=== PATIENT | female | born 1975 | race Caucasian/White ===

== ENCOUNTER 2017-05-31 14:32 | Inpatient (IN) | payer MEDICAID ==
[2017-05-31] MEDS ORDERED: Oxycodone/Acetaminophen 5/325 mg Tab PO STA (14:50)
--- NOTE | 2017-05-31 14:56 | C.PDOC ---
History Of Present Illness 42 year old female presents to the ED c/o severe body aches, chills, nasal congestion, headache, coughing, fever for 4 days. Patient reports taking Advil around the clock with no improvement. Patient states today she still has a fever , has a severe headache pt is currently moaning and looks uncomfortable. Patient denies SOB, sore throat, neck pain, CP, nausea, vomit, diarrhea. Time Seen by Provider: 05/31/17 14:42 Chief Complaint (Nursing): Fever History Per: Patient History/Exam Limitations: no limitations Onset/Duration Of Symptoms: Days Current Symptoms Are (Timing): Still Present Location Of Pain: Headache Sick Contacts (Context): None Associated Symptoms: Fever, Chills, Cough, Nasal Congestion. denies: Nausea, Vomiting, Diarrhea Severity: Mild Recent travel outside of the [place]: No Additional History Per: Patient Past Medical History Reviewed: Historical Data, Nursing Documentation, Vital Signs Vital Signs: Last Vital Signs Temp 99.7 F H 05/31/17 19:36 Pulse 91 H 05/31/17 20:14 Resp 18 05/31/17 20:14 BP 93/50 L 05/31/17 20:14 Pulse Ox 100 05/31/17 19:36 - Medical History PMH: No Chronic Diseases Surgical History: No Surg Hx Family History: States: Unknown Family Hx - Social History Hx Alcohol Use: No Hx Substance Use: No - Immunization History Hx Tetanus Toxoid Vaccination: No Hx Influenza Vaccination: No Hx Pneumococcal Vaccination: No Review Of Systems Constitutional: Positive for: Fever, Chills, Other (Body aches) ENT: Positive for: Nose Congestion. Negative for: Throat Pain Cardiovascular: Negative for: Chest Pain, Palpitations Respiratory: Positive for: Cough. Negative for: Shortness of Breath Gastrointestinal: Negative for: Nausea, Vomiting, Abdominal Pain Musculoskeletal: Negative for: Neck Pain Skin: Negative for: Rash Neurological: Negative for: Weakness, Numbness Physical Exam - Physical Exam Appears: Non-toxic, Other (Uncomfortable ) Skin: Normal Color, Warm, Dry Head: Atraumatic, Normacephalic Eye(s): bilateral: Normal Inspection Ear(s): Bilateral: Normal Nose: No Discharge Oral Mucosa: Moist Throat: Normal, No Erythema, No Exudate Neck: Normal ROM, Supple, No Other (Neck stiffness) Lymphatic: No Adenopathy Chest: Symmetrical Cardiovascular: Rhythm Regular, No Murmur Respiratory: Normal Breath Sounds, No Rales, No Rhonchi, No Wheezing Gastrointestinal/Abdominal: Soft, No Tenderness, No Distention, No Guarding, No Rebound Back: No CVA Tenderness Extremity: Normal ROM, No Pedal Edema, No Calf Tenderness, No Swelling Neurological/Psych: Oriented x3, Normal Speech, Normal Cognition Gait: Steady ED Course And Treatment - Laboratory Results Result Diagrams: 05/31/17 15:29 05/31/17 15:29 Lab Interpretation: Abnormal (WBC 14.3 with left shift, Urine WBC 17 with 2+ leukocyte esterase and moderate bacteria.) Urine POC: Negative O2 Sat by Pulse Oximetry: 100 (On RA) Pulse Ox Interpretation: Normal - Radiology CXR: Interpreted by Me, Viewed By Me, Read By Radiologist CXR Interpretation: Yes: Other (No focal consolidation, significant pleural effusion, or definite pneumothorax identified.) Progress Note: Patient treated with 4 liters of normal saline in ED with persistently low BP but resolution of tachycardia. She was given Rocephin 1gm IVPB. Reevaluation Time: 20:27 Reassessment Condition: Improved (BP now 93/50) - Physician Consult Information Physician Contacted: Addison Garces Outcome Of Conversation: Patient to be admitted for continuation of IV antibiotics. Medical Decision Making Medical Decision Making: Plan: * Percocet 1 tab PO given Pt is hyperventilating, still very warm. Pt tried to stand up and fainted. Disposition Counseled Patient/Family Regarding: Studies Performed, Diagnosis - Disposition Disposition: HOSPITALIZED Disposition Time: 20:29 Condition: IMPROVED - POA Present On Arrival: None - Clinical Impression Clinical Impression: Fever, Urinary tract infection - Scribe Statement The provider has reviewed the documentation as recorded by the Scribe Alverto Plascencia All medical record entries made by the Scribe were at my direction and personally dictated by me. I have reviewed the chart and agree that the record accurately reflects my personal performance of the history, physical exam, medical decision making, and the department course for this patient. I have also personally directed, reviewed, and agree with the discharge instructions and disposition.
[2017-05-31] MEDS ORDERED: Oxycodone/Acetaminophen 5/325 mg Tab ONE (15:23)
[2017-05-31 15:33] LABS: BASO % 0.2 % (0.0-2.0); EOS % 0.1 % (0.0-4.0); HEMATOCRIT 35.7 % (34.0-47.0); LYMPH # 1.3 K/uL (1.0-4.3); LYMPH % 9.2 % (20.0-40.0); MEAN CELL VOLUME 91.1 fL (81.0-99.0); MEAN CORPUSCULAR HEMOGLOBIN 30.6 pg (27.0-31.0); MEAN CORPUSCULAR HGB CONC 33.6 g/dL (33.0-37.0); MEAN PLATELET VOLUME 8.1 fL (7.2-11.7); MONO # 1.1 K/uL (0.0-0.8); MONO % 7.5 % (0.0-10.0); PLATELET COUNT 196 K/uL (130-400); RED CELL DISTRIBUTION WIDTH 13.2 % (11.5-14.5)
[2017-05-31 15:41] LABS: WHITE BLOOD COUNT 14.3 K/uL (4.8-10.8)
[2017-05-31 15:46] LABS: ALB/GLOB RATIO 1.3 (1.0-2.1); BILIRUBIN,TOTAL 0.8 mg/dL (0.2-1.3); GFR AFRICAN-AMERICAN > 60; GLUCOSE,RANDOM 107 mg/dL (65-105); TOTAL PROTEIN 7.1 g/dL (6.3-8.3)
[2017-05-31 15:51] LABS: ALKALINE PHOSPHATASE 121 U/L (38-126); ALT/SGPT 197 U/L (9-52); AST/SGOT 245 U/L (14-36); BLOOD UREA NITROGEN 9 mg/dL (7-17); CARBON DIOXIDE 26 mmol/L (22-30); CHLORIDE 100 mmol/L (98-107); POTASSIUM 4.1 mmol/L (3.6-5.2); SODIUM 138 mmol/L (132-148)
[2017-05-31 15:58] LABS: NEUTROPHIL 81 % (50-75); TOTAL CELLS COUNTED 100
--- NOTE | 2017-05-31 16:03 | RAD ---
HISTORY: SOB COMPARISON: None available. TECHNIQUE: Chest, one view. FINDINGS: Examination limited by habitus. LUNGS: No focal consolidation. Please note that chest x-ray has limited sensitivity for the detection of pulmonary masses. PLEURA: No significant pleural effusion identified. No definite pneumothorax . CARDIOVASCULAR: The cardiomediastinal silhouette appears within normal limits of size. OSSEOUS STRUCTURES: No acute osseous abnormality identified. VISUALIZED UPPER ABDOMEN: Unremarkable. OTHER FINDINGS: None. IMPRESSION: No focal consolidation, significant pleural effusion, or definite pneumothorax identified.
[2017-05-31] MEDS ORDERED: Sodium Chloride 0.9% 1,000 ML ONE (16:05)
[2017-05-31] MEDS ORDERED: Sodium Chloride 0.9% 1,000 ML IV ONE ×3 (16:07→19:24)
[2017-05-31 17:19] LABS: RBC URINE 10 /hpf (0-3); TRANSITIONAL EPITHIAL < 1 /hpf (0-3); URINE BACTERIA MOD (<OCC); URINE BILIRUBIN NEGATIVE (NEGATIVE); URINE BLOOD 2+ (NEGATIVE); URINE COLOR Yellow (YELLOW); URINE GLUCOSE (UA) NORMAL (Normal); URINE KETONE 1+ mg/dL (NEGATIVE); URINE PROTEIN NEGATIVE (NEGATIVE); WBC URINE 17 /hpf (0-5)
[2017-05-31 17:20] LABS: URINE LEUKOCYTE ESTERASE 2+ Leu/uL (Negative)
[2017-05-31] MEDS ORDERED: cefTRIAXone IV 1 gm in Dextros 50 ML IVPB ONE (17:31)
[2017-05-31 19:33] LABS: VENOUS BLOOD GAS BASE EXCESS -4.7 mmol/L (0.0-2.0); VENOUS BLOOD GAS PCO2 37 mmHg (40-60); VENOUS BLOOD PH 7.35 (7.32-7.43)
[2017-05-31] MEDS ORDERED: Sodium Chloride 0.9% 1,000 ML IV SCH ×2 (20:15→20:30)
[2017-05-31 22:59] VITALS: RESP 20
--- NOTE | 2017-06-01 00:16 | CP.PCM.HP ---
<DominickOralia - Last Filed: 06/01/17 03:14> History of Present Illness - History of Present Illness History of Present Illness: CC: "flu like symptoms" HPI: 42 y/o Georgian speaking female with no significant PMH presents to the ED complaining of "cold/flu-like symptoms". Patient says she started having a generalized headache, fever, chills, and body aches 4 days ago. Patient says she has tried Advil, Tylenol, and Motrin with minimal relief. Patient says she has been taking 6 Advil every 8 hours and 2 acetaminophen last night. She says her son was recently sick with similar symptoms. Patient admits to dry cough, midsternal chest pressure, SOB at rest, dizziness upon standing, palpitations, nausea, vomiting x2 yesterday, and constipation. She denies changes in vision or hearing, sore throat, abdominal pain, diarrhea, hematemesis, dysuria, hematuria, pain and swelling in legs, and recent travel. FDLNMP: 05/16/17. PCP: Sulma Douglas PMH: denies Meds: denies PSH: x3 [place]: denies FH: unspecified aneurysm (mother) SH: denies tobacco, alcohol, and drug use Present on Admission - Present on Admission Any Indicators Present on Admission: No Review of Systems - Review of Systems All systems: reviewed and no additional remarkable complaints except (as per HPI ) Past Patient History - Past Social History Smoking Status: Never Smoked - PSYCHIATRIC Hx Substance Use: No - SURGICAL HISTORY Hx Section: Yes (x3) - ANESTHESIA Hx Anesthesia: Yes Hx Anesthesia Reactions: No Meds Allergies/Adverse Reactions: Allergies Allergy/AdvReac Type Severity Reaction Status Date / Time No Known Allergies Allergy Verified 05/31/17 14:41 Physical Exam - Constitutional Appears: Non-toxic, No Acute Distress, Other (fatigued ) - Head Exam Head Exam: ATRAUMATIC, NORMAL INSPECTION, NORMOCEPHALIC - Eye Exam Eye Exam: EOMI, Normal appearance - ENT Exam ENT Exam: Mucous Membranes Moist, Normal Oropharynx - Neck Exam Neck exam: Negative for: Lymphadenopathy - Respiratory Exam Respiratory Exam: Clear to Auscultation Bilateral, NORMAL BREATHING PATTERN. absent: Accessory Muscle Use, Rales, Rhonchi, Wheezes, Respiratory Distress - Cardiovascular Exam Cardiovascular Exam: Tachycardia, RRR, +S1, +S2 - GI/Abdominal Exam GI & Abdominal Exam: Normal Bowel Sounds, Soft. absent: Distended, Firm, Guarding, Tenderness - Extremities Exam Extremities exam: Positive for: normal capillary refill, normal inspection, pedal pulses present. Negative for: calf tenderness, pedal edema - Back Exam Back exam: absent: CVA tenderness (L), CVA tenderness (R) - Neurological Exam Neurological exam: Alert, Oriented x3 Additional comments: negative Brudzinski and Kernig sign - Psychiatric Exam Psychiatric exam: Normal Affect, Normal Mood - Skin Skin Exam: Dry, Intact, Normal Color, Warm Results - Vital Signs Recent Vital Signs: Last Vital Signs Temp 98.7 F 05/31/17 22:58 Pulse 83 05/31/17 22:58 Resp 20 05/31/17 22:58 BP 91/57 L 05/31/17 22:58 Pulse Ox 96 05/31/17 22:58 - Labs Result Diagrams: 05/31/17 15:29 05/31/17 15:29 Labs: Laboratory Results - last 24 hr 05/31/17 05/31/17 05/31/17 15:29 15:29 15:32 WBC 14.3 H D RBC 3.92 Hgb 12.0 Hct 35.7 MCV 91.1 MCH 30.6 MCHC 33.6 RDW 13.2 Plt Count 196 MPV 8.1 Neut % (Auto) 83.0 H Lymph % (Auto) 9.2 L [place] % (Auto) 7.5 Eos % (Auto) 0.1 Baso % (Auto) 0.2 Neut # 11.8 H Lymph # 1.3 [place] # 1.1 H Eos # 0.0 Baso # 0.0 Neutrophils % (Manual) 81 H Lymphocytes % (Manual) 6 L Monocytes % (Manual) 13 H Platelet Estimate Normal RBC Morphology Normal pO2 VBG pH VBG pCO2 VBG HCO3 VBG Total CO2 VBG O2 Sat (Calc) VBG Base Excess VBG Potassium Glucose Lactate Sodium 138 Potassium 4.1 Chloride 100 Carbon Dioxide 26 Anion Gap 16 BUN 9 Creatinine 0.7 Est GFR ( Amer) > 60 Est GFR (Non-Af Amer) > 60 Random Glucose 107 H Calcium 8.0 L Total Bilirubin 0.8 AST 245 H ALT 197 H D Alkaline Phosphatase 121 Total Protein 7.1 Albumin 4.1 Globulin 3.0 Albumin/Globulin Ratio 1.3 Venous Blood Potassium Urine Color Urine Clarity Urine pH Ur Specific [place] Urine Protein Urine Glucose (UA) Urine Ketones Urine Blood Urine Nitrate Urine Bilirubin Urine Urobilinogen Ur Leukocyte Esterase Urine WBC (Auto) Urine RBC (Auto) Ur Squamous Epith Cells Ur Transition Epith Cell Urine Bacteria Urine HCG, Qual Influenza Typ A,B (EIA) Negative for flu a/b 05/31/17 05/31/17 17:12 19:30 WBC RBC Hgb Hct MCV MCH MCHC RDW Plt Count MPV Neut % (Auto) Lymph % (Auto) [place] % (Auto) Eos % (Auto) Baso % (Auto) Neut # Lymph # [place] # Eos # Baso # Neutrophils % (Manual) Lymphocytes % (Manual) Monocytes % (Manual) Platelet Estimate RBC Morphology pO2 44 VBG pH 7.35 VBG pCO2 37 L VBG HCO3 20.7 VBG Total CO2 21.5 L VBG O2 Sat (Calc) 84.2 H VBG Base Excess -4.7 L VBG Potassium 3.1 L Glucose 98 Lactate 0.5 L Sodium 139.0 Potassium Chloride 114.0 H Carbon Dioxide Anion Gap BUN Creatinine Est GFR ( Amer) Est GFR (Non-Af Amer) Random Glucose Calcium Total Bilirubin AST ALT Alkaline Phosphatase Total Protein Albumin Globulin Albumin/Globulin Ratio Venous Blood Potassium 3.1 L Urine Color Yellow Urine Clarity Clear Urine pH 8.0 Ur Specific [place] 1.006 Urine Protein Negative Urine Glucose (UA) Normal Urine Ketones 1+ H Urine Blood 2+ H Urine Nitrate Negative Urine Bilirubin Negative Urine Urobilinogen 2.0 H Ur Leukocyte Esterase 2+ H Urine WBC (Auto) 17 H Urine RBC (Auto) 10 H Ur Squamous Epith Cells 1 Ur Transition Epith Cell < 1 Urine Bacteria Mod H Urine HCG, Qual Negative Influenza Typ A,B (EIA) Assessment & Plan (1) Urinary tract infection Assessment and Plan: * fever and leukocytosis (14.3) * UA: Ketones 1+, Blood 2+, Urobilinogen 2, Leukocyte esterase 2+, WBC 17, RBC 10, Bacteria moderate, HCG negative * f/u repeat UA * Rocephin 1g daily * f/u urine culture * f/u procal * Tylenol prn fever * Toradol x1 dose given Status: Acute (2) Cough Assessment and Plan: * CXR: no acute cardiopulmonary disease * Flu A/B negative Status: Acute (3) Hypotension Assessment and Plan: * given 3L bolus in the ED * NS@100 * lactate: 0.5 * f/u blood culture Status: Acute (4) Transaminitis Assessment and Plan: * AST/ALT on admission: 245/197 * f/u hepatitis panel * f/u hepatic US Status: Acute (5) Prophylactic measure Assessment and Plan: * heparin * protonix * zofran prn nausea * tylenol prn fever Status: Acute <PhillipjoshJose P - Last Filed: 06/01/17 06:30> Results - Vital Signs Recent Vital Signs: Last Vital Signs Temp 100 F H 06/01/17 05:58 Pulse 86 06/01/17 03:00 Resp 20 06/01/17 03:00 BP 95/62 L 06/01/17 03:00 Pulse Ox 95 06/01/17 03:00 - Labs Result Diagrams: 05/31/17 15:29 05/31/17 15:29 Labs: Laboratory Results - last 24 hr 05/31/17 05/31/17 05/31/17 15:29 15:29 15:32 WBC 14.3 H D RBC 3.92 Hgb 12.0 Hct 35.7 MCV 91.1 MCH 30.6 MCHC 33.6 RDW 13.2 Plt Count 196 MPV 8.1 Neut % (Auto) 83.0 H Lymph % (Auto) 9.2 L [place] % (Auto) 7.5 Eos % (Auto) 0.1 Baso % (Auto) 0.2 Neut # 11.8 H Lymph # 1.3 [place] # 1.1 H Eos # 0.0 Baso # 0.0 Neutrophils % (Manual) 81 H Lymphocytes % (Manual) 6 L Monocytes % (Manual) 13 H Platelet Estimate Normal RBC Morphology Normal pO2 VBG pH VBG pCO2 VBG HCO3 VBG Total CO2 VBG O2 Sat (Calc) VBG Base Excess VBG Potassium Glucose Lactate Sodium 138 Potassium 4.1 Chloride 100 Carbon Dioxide 26 Anion Gap 16 BUN 9 Creatinine 0.7 Est GFR ( Amer) > 60 Est GFR (Non-Af Amer) > 60 Random Glucose 107 H Calcium 8.0 L Total Bilirubin 0.8 AST 245 H ALT 197 H D Alkaline Phosphatase 121 Total Protein 7.1 Albumin 4.1 Globulin 3.0 Albumin/Globulin Ratio 1.3 Venous Blood Potassium Urine Color Urine Clarity Urine pH Ur Specific [place] Urine Protein Urine Glucose (UA) Urine Ketones Urine Blood Urine Nitrate Urine Bilirubin Urine Urobilinogen Ur Leukocyte Esterase Urine WBC (Auto) Urine RBC (Auto) Ur Squamous Epith Cells Ur Transition Epith Cell Urine Bacteria Urine HCG, Qual Influenza Typ A,B (EIA) Negative for flu a/b 05/31/17 05/31/17 06/01/17 17:12 19:30 01:43 WBC RBC Hgb Hct MCV MCH MCHC RDW Plt Count MPV Neut % (Auto) Lymph % (Auto) [place] % (Auto) Eos % (Auto) Baso % (Auto) Neut # Lymph # [place] # Eos # Baso # Neutrophils % (Manual) Lymphocytes % (Manual) Monocytes % (Manual) Platelet Estimate RBC Morphology pO2 44 VBG pH 7.35 VBG pCO2 37 L VBG HCO3 20.7 VBG Total CO2 21.5 L VBG O2 Sat (Calc) 84.2 H VBG Base Excess -4.7 L VBG Potassium 3.1 L Glucose 98 Lactate 0.5 L Sodium 139.0 Potassium Chloride 114.0 H Carbon Dioxide Anion Gap BUN Creatinine Est GFR ( Amer) Est GFR (Non-Af Amer) Random Glucose Calcium Total Bilirubin AST ALT Alkaline Phosphatase Total Protein Albumin Globulin Albumin/Globulin Ratio Venous Blood Potassium 3.1 L Urine Color Yellow Straw Urine Clarity Clear Clear Urine pH 8.0 6.0 Ur Specific [place] 1.006 1.008 Urine Protein Negative Negative Urine Glucose (UA) Normal Normal Urine Ketones 1+ H 1+ H Urine Blood 2+ H 1+ H Urine Nitrate Negative Negative Urine Bilirubin Negative Negative Urine Urobilinogen 2.0 H Normal Ur Leukocyte Esterase 2+ H 2+ H Urine WBC (Auto) 17 H 121 H Urine RBC (Auto) 10 H 3 Ur Squamous Epith Cells 1 9 H Ur Transition Epith Cell < 1 Urine Bacteria Mod H Rare Urine HCG, Qual Negative Influenza Typ A,B (EIA) Attending/Attestation - Attestation I have personally seen and examined this patient.: Yes I have fully participated in the care of the patient.: Yes I have reviewed all pertinent clinical information: Yes Notes (Text): Assessment Sepsis with fever leukocytosis, headach, bodyache, h/o son having similar symptoms, infection looking picture of urine without back, suprapubic pain/ tenderness, elevated transaminases DD of UTI, viral syndrome, viral hepatitis. Plan Empiric abx, cultures, hepatitis panel, hiv testing, gi/dvt prophylaxis. See orders for detail.
[2017-06-01] MEDS: Sodium Chloride 0.9% 1,000 ML IV SCH ×4 (00:40→21:29)
[2017-06-01 01:52] LABS: RBC URINE 3 /hpf (0-3); URINE BACTERIA RARE (<OCC); URINE BILIRUBIN NEGATIVE (NEGATIVE); URINE BLOOD 1+ (NEGATIVE); URINE COLOR Straw (YELLOW); URINE GLUCOSE (UA) NORMAL (Normal); URINE KETONE 1+ mg/dL (NEGATIVE); URINE LEUKOCYTE ESTERASE 2+ Leu/uL (Negative); URINE PROTEIN NEGATIVE (NEGATIVE); URINE UROBILINOGEN NORMAL mg/dL (0.2-1.0); WBC URINE 121 /hpf (0-5)
[2017-06-01 07:16] LABS: EOS % 0.1 % (0.0-4.0); LYMPH # 1.1 K/uL (1.0-4.3); MONO # 0.8 K/uL (0.0-0.8)
[2017-06-01 07:22] LABS: HEMATOCRIT 29.2 % (34.0-47.0); LYMPH % 10.1 % (20.0-40.0); MEAN CELL VOLUME 91.3 fL (81.0-99.0); MEAN CORPUSCULAR HEMOGLOBIN 31.3 pg (27.0-31.0); MEAN CORPUSCULAR HGB CONC 34.3 g/dL (33.0-37.0); MEAN PLATELET VOLUME 8.4 fL (7.2-11.7); MONO % 7.1 % (0.0-10.0); RED CELL DISTRIBUTION WIDTH 13.2 % (11.5-14.5); WHITE BLOOD COUNT 10.8 K/uL (4.8-10.8)
[2017-06-01 07:53] LABS: ALB/GLOB RATIO 1.2 (1.0-2.1); ALKALINE PHOSPHATASE 97 U/L (38-126); ALT/SGPT 184 U/L (9-52); AST/SGOT 121 U/L (14-36); BILIRUBIN,TOTAL 0.5 mg/dL (0.2-1.3); BLOOD UREA NITROGEN 5 mg/dL (7-17); CALCIUM 6.4 mg/dl (8.6-10.4); CARBON DIOXIDE 20 mmol/L (22-30); CHLORIDE 108 mmol/L (98-107); GFR AFRICAN-AMERICAN > 60; GLUCOSE,RANDOM 89 mg/dL (65-105); POTASSIUM 3.4 mmol/L (3.6-5.2); SODIUM 137 mmol/L (132-148); TOTAL PROTEIN 5.3 g/dL (6.3-8.3)
--- NOTE | 2017-06-01 09:22 | US ---
HISTORY: transaminitis COMPARISON: None. TECHNIQUE: Sonographic evaluation of the right upper quadrant of the abdomen. FINDINGS: LIVER: Measures 17.00 cm in length. Normal echogenicity of the liver parenchyma. No mass. No intrahepatic bile duct dilatation. GALLBLADDER: No cholelithiasis. Thickened wall. Trace pericholecystic fluid. Wall measures 5 mm thickness. Negative sonographic Pichardo sign. COMMON BILE DUCT: Measures mm. No stones. No dilatation. PANCREAS: Unremarkable as visualized. No mass. No ductal dilatation. RIGHT KIDNEY: Measures 11.0 cm in length. Normal echogenicity. No calculus, mass, or hydronephrosis. AORTA: No aneurysmal dilatation. IVC: Unremarkable. OTHER FINDINGS: None . IMPRESSION: Thickened gallbladder wall. Trace pericholecystic fluid. No cholelithiasis and negative sonographic Pichardo sign. Nonspecific finding. The remainder the examination is unremarkable.
[2017-06-01] MEDS: Pantoprazole 40 mg EC Tab PO SCH (11:34)
[2017-06-01] MEDS ORDERED: POLYETHYLENE GLYCOL 3350 17 GM/Dose PACKET PO ONE (12:00)
--- NOTE | 2017-06-01 16:22 | CP.PCM.PN ---
<Summer Camara - Last Filed: 06/01/17 16:17> Subjective - Date & Time of Evaluation Date of Evaluation: 06/01/17 Time of Evaluation: 10:00 - Subjective Subjective: Medicine Note for Hospitalist, Dr. Diallo's Service Patient was seen and examined at bedside. Patient reports she was feverish this morning with some chills. Denied headache, chest pain, SOB, abdominal pain, n/v/ d/c, or urinary symptoms. Objective - Vital Signs/Intake and Output Vital Signs (last 24 hours): Temp Pulse Resp BP Pulse Ox 99.0 F 97 H 20 93/57 L 96 06/01/17 15:03 06/01/17 15:03 06/01/17 15:03 06/01/17 15:03 06/01/17 15:03 Intake and Output: 06/01/17 06/01/17 06:59 18:59 Intake Total 1300 Output Total 400 Balance 900 - Medications Medications: Current Medications Acetaminophen (Tylenol 325mg Tab) 650 mg PO Q6 PRN PRN Reason: Fever >100.4 F Last Admin: 06/01/17 12:47 Dose: 650 mg Docusate Sodium (Colace) 100 mg PO BID [facility] Heparin Sodium (Porcine) (Heparin) 5,000 units SC Q12 [facility] Last Admin: 06/01/17 11:31 Dose: 5,000 units Sodium Chloride (Sodium Chloride 0.9%) 1,000 mls @ 100 mls/hr IV .Q10H [facility] Last Admin: 06/01/17 12:48 Dose: Not Given Ceftriaxone Sodium 1 gm/ (Sodium Chloride) 100 mls @ 100 mls/hr IVPB DAILY [facility] Last Admin: 06/01/17 11:37 Dose: 100 mls/hr Ondansetron HCl (Zofran Inj) 4 mg IVP Q6 PRN PRN Reason: Nausea/Vomiting Last Admin: 06/01/17 00:53 Dose: 4 mg Pantoprazole Sodium (Protonix Ec Tab) 40 mg PO DAILY [facility] Last Admin: 06/01/17 11:34 Dose: 40 mg Pneumococcal Polyvalent Vaccine (Pneumovax 23 Vaccine) 0.5 ml IM .ONCE ONE Stop: 06/03/17 10:01 Potassium Chloride (K-Dur 20 Meq Er Tab) 40 meq PO ONCE ONE Stop: 06/02/17 11:01 - Labs Labs: 06/01/17 07:05 06/01/17 07:05 - Constitutional Appears: No Acute Distress - Head Exam Head Exam: NORMAL INSPECTION, NORMOCEPHALIC - Eye Exam Eye Exam: EOMI, Normal appearance, PERRL Pupil Exam: NORMAL ACCOMODATION - ENT Exam ENT Exam: Mucous Membranes Moist, Normal Exam - Neck Exam Neck Exam: Normal Inspection - Respiratory Exam Respiratory Exam: Clear to Ausculation Bilateral, NORMAL BREATHING PATTERN. absent: Decreased Breath Sounds - Cardiovascular Exam Cardiovascular Exam: REGULAR RHYTHM, RRR - GI/Abdominal Exam GI & Abdominal Exam: Soft, Normal Bowel Sounds. absent: Distended, Tenderness - Back Exam Back Exam: absent: CVA tenderness (L), CVA tenderness (R) - Neurological Exam Neurological Exam: Alert, Awake, Oriented x3 - Psychiatric Exam Psychiatric exam: Normal Affect, Normal Mood - Skin Skin Exam: Dry, Intact, Normal Color, Warm Assessment and Plan - Assessment and Plan (Free Text) Plan: (1) Urinary tract infection * Persistent fever, resolved leukocytosis, continued left shift, no lactate level * UA: Ketones 1+, Blood 2+, Urobilinogen 2, Leukocyte esterase 2+, WBC 17, RBC 10, Bacteria moderate, HCG negative * Rocephin 1g daily * Tylenol prn fever * f/u urine culture * f/u procal (2) Cough * CXR: no acute cardiopulmonary disease * Flu A/B negative (3) Hypotension * given 3L bolus in the ED * NS@100 * lactate: 0.5 * f/u blood culture (4) Transaminitis * Likely 2/2 to Tylenol use * AST/ALT on admission: 245/197 --> downtrending * Hepatitis panel - negative * Hepatic US - some pericholecystic fluid otherwise unremarkable US (5) Prophylactic measure * heparin * protonix * zofran prn nausea * tylenol prn fever DW Hoa Alvarez DO,PGY-[id number] <Eleanor Couch - Last Filed: 06/02/17 18:30> Objective - Vital Signs/Intake and Output Vital Signs (last 24 hours): Temp Pulse Resp BP Pulse Ox 99.8 F H 82 20 105/61 99 06/02/17 15:00 06/02/17 15:00 06/02/17 15:00 06/02/17 15:00 06/02/17 15:00 Intake and Output: 06/02/17 06/02/17 06:59 18:59 Intake Total 2430 1350 Balance 2430 1350 - Medications Medications: Current Medications Docusate Sodium (Colace) 100 mg PO BID [facility] Last Admin: 06/02/17 17:30 Dose: 100 mg Heparin Sodium (Porcine) (Heparin) 5,000 units SC Q12 [facility] Last Admin: 06/02/17 11:34 Dose: 5,000 units Ceftriaxone Sodium 1 gm/ (Sodium Chloride) 100 mls @ 100 mls/hr IVPB DAILY [facility] Last Admin: 06/02/17 11:35 Dose: 100 mls/hr Sodium Chloride (Sodium Chloride 0.9%) 1,000 mls @ 125 mls/hr IV .Q8H [facility] Last Admin: 06/02/17 08:22 Dose: 125 mls/hr Ibuprofen (Motrin Tab) 600 mg PO Q6H PRN PRN Reason: Fever >100.4 F Ondansetron HCl (Zofran Inj) 4 mg IVP Q6 PRN PRN Reason: Nausea/Vomiting Last Admin: 06/01/17 00:53 Dose: 4 mg Pantoprazole Sodium (Protonix Ec Tab) 40 mg PO DAILY [facility] Last Admin: 06/02/17 11:34 Dose: 40 mg Pneumococcal Polyvalent Vaccine (Pneumovax 23 Vaccine) 0.5 ml IM .ONCE ONE Stop: 06/03/17 10:01 Potassium Phos/Sodium Phos (Neutra-Phos) 1 pkt PO TID [facility] Stop: 06/03/17 10:01 Last Admin: 06/02/17 17:30 Dose: 1 pkt Promethazine HCl/Codeine (Phenergan/Codeine Oral Syrup) 5 ml PO Q4 PRN PRN Reason: Cough Last Admin: 06/02/17 16:09 Dose: 5 ml - Labs Labs: 06/02/17 06:24 06/02/17 06:24 Attending/Attestation - Attestation I have personally seen and examined this patient.: Yes I have fully participated in the care of the patient.: Yes I have reviewed all pertinent clinical information, including history, physical exam and plan: Yes Notes (Text): Seen and examined d/w the resident I agree with the documentation of the resident's assessment and the plan 06/02/17 18:28
[2017-06-01 17:46] LABS: LEGIONELLA AG URINE NEGATIVE (NEGATIVE)
[2017-06-02] MEDS: Sodium Chloride 0.9% 1,000 ML IV SCH ×3 (05:22→19:00)
[2017-06-02 06:33] LABS: BASO % 0.2 % (0.0-2.0); EOS % 0.1 % (0.0-4.0); HEMATOCRIT 28.7 % (34.0-47.0); LYMPH # 1.3 K/uL (1.0-4.3); LYMPH % 17.9 % (20.0-40.0); MEAN CELL VOLUME 90.4 fL (81.0-99.0); MEAN CORPUSCULAR HEMOGLOBIN 30.5 pg (27.0-31.0); MEAN CORPUSCULAR HGB CONC 33.7 g/dL (33.0-37.0); MEAN PLATELET VOLUME 8.2 fL (7.2-11.7); MONO # 0.7 K/uL (0.0-0.8); MONO % 9.6 % (0.0-10.0); WHITE BLOOD COUNT 7.1 K/uL (4.8-10.8)
[2017-06-02 06:56] LABS: ALB/GLOB RATIO 1.3 (1.0-2.1); ALKALINE PHOSPHATASE 126 U/L (38-126); ALT/SGPT 267 U/L (9-52); AST/SGOT 218 U/L (14-36); BILIRUBIN,TOTAL 0.4 mg/dL (0.2-1.3); CARBON DIOXIDE 25 mmol/L (22-30); CHLORIDE 109 mmol/L (98-107); GFR AFRICAN-AMERICAN > 60; GLUCOSE,RANDOM 96 mg/dL (65-105); MAGNESIUM 1.8 mg/dL (1.6-2.3); PHOSPHOROUS 1.2 mg/dL (2.5-4.5); POTASSIUM 3.1 mmol/L (3.6-5.2); SODIUM 140 mmol/L (132-148); TOTAL PROTEIN 5.3 g/dL (6.3-8.3)
[2017-06-02 07:20] LABS: BLOOD UREA NITROGEN 2 mg/dL (7-17)
[2017-06-02] MEDS ORDERED: Magnesium Sulfate 1 gm in D5W 1 GM/100 ML BAG IVPB SCH (08:00)
[2017-06-02] MEDS ORDERED: Potassium Chloride 20 mEq ER Tab PO ONE ×3 (10:00→11:15)
[2017-06-02] MEDS: Pantoprazole 40 mg EC Tab PO SCH (11:34)
[2017-06-02] MEDS: Potassium & Sodium Phosphate PO SCH ×3 (11:35→17:30)
[2017-06-02] MEDS ORDERED: Albuterol-Ipratrop 3 mg / 0.5 (3 ml) UD INH ONE (15:45)
--- NOTE | 2017-06-02 15:46 | CP.PCM.PN ---
<Summer Camara - Last Filed: 06/02/17 15:39> Subjective - Date & Time of Evaluation Date of Evaluation: 06/02/17 Time of Evaluation: 10:00 - Subjective Subjective: Medicine Note for Hospitalist, Dr. Diallo's Service Patient was seen and examined at bedside. Patient reports she was feverish last night, however today no fever or chills. Denied headache, chest pain, SOB, abdominal pain, n/v/d/c, or urinary symptoms. Objective - Vital Signs/Intake and Output Vital Signs (last 24 hours): Temp Pulse Resp BP Pulse Ox 98.6 F 80 20 92/57 L 94 L 06/02/17 07:55 06/02/17 07:55 06/02/17 07:55 06/02/17 07:55 06/02/17 07:55 Intake and Output: 06/02/17 06/02/17 06:59 18:59 Intake Total 2430 Balance 2430 - Medications Medications: Current Medications Docusate Sodium (Colace) 100 mg PO BID [facility] Last Admin: 06/02/17 11:34 Dose: 100 mg Heparin Sodium (Porcine) (Heparin) 5,000 units SC Q12 [facility] Last Admin: 06/02/17 11:34 Dose: 5,000 units Ceftriaxone Sodium 1 gm/ (Sodium Chloride) 100 mls @ 100 mls/hr IVPB DAILY [facility] Last Admin: 06/02/17 11:35 Dose: 100 mls/hr Sodium Chloride (Sodium Chloride 0.9%) 1,000 mls @ 125 mls/hr IV .Q8H [facility] Last Admin: 06/02/17 08:22 Dose: 125 mls/hr Ibuprofen (Motrin Tab) 600 mg PO Q6H PRN PRN Reason: Fever >100.4 F Ondansetron HCl (Zofran Inj) 4 mg IVP Q6 PRN PRN Reason: Nausea/Vomiting Last Admin: 06/01/17 00:53 Dose: 4 mg Pantoprazole Sodium (Protonix Ec Tab) 40 mg PO DAILY [facility] Last Admin: 06/02/17 11:34 Dose: 40 mg Pneumococcal Polyvalent Vaccine (Pneumovax 23 Vaccine) 0.5 ml IM .ONCE ONE Stop: 06/03/17 10:01 Potassium Phos/Sodium Phos (Neutra-Phos) 1 pkt PO TID [facility] Stop: 06/03/17 10:01 Last Admin: 06/02/17 15:00 Dose: 1 pkt - Labs Labs: 06/02/17 06:24 06/02/17 06:24 - Additional Findings Additional findings: - Constitutional Appears: No Acute Distress - Head Exam Head Exam: NORMAL INSPECTION, NORMOCEPHALIC - Eye Exam Eye Exam: EOMI, Normal appearance, PERRL Pupil Exam: NORMAL ACCOMODATION - ENT Exam ENT Exam: Mucous Membranes Moist, Normal Exam - Neck Exam Neck Exam: Normal Inspection - Respiratory Exam Respiratory Exam: Clear to Ausculation Bilateral, NORMAL BREATHING PATTERN. absent: Decreased Breath Sounds - Cardiovascular Exam Cardiovascular Exam: REGULAR RHYTHM, RRR - GI/Abdominal Exam GI & Abdominal Exam: Soft, Normal Bowel Sounds. absent: Distended, Tenderness - Back Exam Back Exam: absent: CVA tenderness (L), CVA tenderness (R) - Neurological Exam Neurological Exam: Alert, Awake, Oriented x3 - Psychiatric Exam Psychiatric exam: Normal Affect, Normal Mood - Skin Skin Exam: Dry, Intact, Normal Color, Warm Assessment and Plan - Assessment and Plan (Free Text) Plan: (1) Urinary tract infection * Persistent fever, resolved leukocytosis, continued left shift, no lactate level * UA: Ketones 1+, Blood 2+, Urobilinogen 2, Leukocyte esterase 2+, WBC 17, RBC 10, Bacteria moderate, HCG negative * Rocephin 1g daily * Motrin prn fever * Patient has been spiking daily low grade fevers will continue to monitor- require her to be afebrile for 24hours for DC * Urine culture - E.Coli sensitive to Rocephin - can DC with Keflex * Procal - 0.30 - low (2) Cough * CXR: no acute cardiopulmonary disease * Flu A/B negative (3) Hypotension * Given 3L bolus in the ED * NS@100 * lactate: 0.5 * Blood culture - negative for growth (4) Transaminitis * GI consulted - Dr. Gomez - help appreciated * AST/ALT on admission: 245/197 --> initially downtrending, now uptrending * Hepatitis panel - negative * Hepatic US - some pericholecystic fluid otherwise unremarkable US (5) Prophylactic measure * heparin * protonix * zofran prn nausea * tylenol prn fever DW Hoa Alvarez DO,PGY-1 <Eleanor Couch - Last Filed: 06/02/17 18:31> Objective - Vital Signs/Intake and Output Vital Signs (last 24 hours): Temp Pulse Resp BP Pulse Ox 99.8 F H 82 20 105/61 99 06/02/17 15:00 06/02/17 15:00 06/02/17 15:00 06/02/17 15:00 06/02/17 15:00 Intake and Output: 06/02/17 06/02/17 06:59 18:59 Intake Total 2430 1350 Balance 2430 1350 - Medications Medications: Current Medications Docusate Sodium (Colace) 100 mg PO BID [facility] Last Admin: 06/02/17 17:30 Dose: 100 mg Heparin Sodium (Porcine) (Heparin) 5,000 units SC Q12 [facility] Last Admin: 06/02/17 11:34 Dose: 5,000 units Ceftriaxone Sodium 1 gm/ (Sodium Chloride) 100 mls @ 100 mls/hr IVPB DAILY [facility] Last Admin: 06/02/17 11:35 Dose: 100 mls/hr Sodium Chloride (Sodium Chloride 0.9%) 1,000 mls @ 125 mls/hr IV .Q8H [facility] Last Admin: 06/02/17 08:22 Dose: 125 mls/hr Ibuprofen (Motrin Tab) 600 mg PO Q6H PRN PRN Reason: Fever >100.4 F Ondansetron HCl (Zofran Inj) 4 mg IVP Q6 PRN PRN Reason: Nausea/Vomiting Last Admin: 06/01/17 00:53 Dose: 4 mg Pantoprazole Sodium (Protonix Ec Tab) 40 mg PO DAILY [facility] Last Admin: 06/02/17 11:34 Dose: 40 mg Pneumococcal Polyvalent Vaccine (Pneumovax 23 Vaccine) 0.5 ml IM .ONCE ONE Stop: 06/03/17 10:01 Potassium Phos/Sodium Phos (Neutra-Phos) 1 pkt PO TID [facility] Stop: 06/03/17 10:01 Last Admin: 06/02/17 17:30 Dose: 1 pkt Promethazine HCl/Codeine (Phenergan/Codeine Oral Syrup) 5 ml PO Q4 PRN PRN Reason: Cough Last Admin: 06/02/17 16:09 Dose: 5 ml - Labs Labs: 06/02/17 06:24 06/02/17 06:24 Attending/Attestation - Attestation I have personally seen and examined this patient.: Yes I have fully participated in the care of the patient.: Yes I have reviewed all pertinent clinical information, including history, physical exam and plan: Yes Notes (Text): Patient had low grade fever last night LFT elevated continue antibiotics.GI evaluation 06/02/17 18:30
[2017-06-02] MEDS: Promethazine/Cod 6.25mg-10mg/5ml Syr UD PO PRN ×2 (16:09→21:16)
[2017-06-03] MEDS: Sodium Chloride 0.9% 1,000 ML IV SCH ×2 (01:08→08:10)
[2017-06-03 07:38] LABS: BASO % 0.2 % (0.0-2.0); EOS % 0.5 % (0.0-4.0); HEMATOCRIT 28.8 % (34.0-47.0); LYMPH % 25.6 % (20.0-40.0); MEAN CELL VOLUME 90.8 fL (81.0-99.0); MEAN CORPUSCULAR HEMOGLOBIN 31.1 pg (27.0-31.0); MEAN CORPUSCULAR HGB CONC 34.2 g/dL (33.0-37.0); MEAN PLATELET VOLUME 8.2 fL (7.2-11.7); MONO # 0.4 K/uL (0.0-0.8); MONO % 10.7 % (0.0-10.0); NRBC % 0.2 % (0.0-2.0); RED CELL DISTRIBUTION WIDTH 13.4 % (11.5-14.5); WHITE BLOOD COUNT 3.9 K/uL (4.8-10.8)
[2017-06-03 08:23] LABS: ALB/GLOB RATIO 1.3 (1.0-2.1); ALKALINE PHOSPHATASE 106 U/L (38-126); ALT/SGPT 201 U/L (9-52); AST/SGOT 75 U/L (14-36); BILIRUBIN,TOTAL 0.3 mg/dL (0.2-1.3); BLOOD UREA NITROGEN 5 mg/dL (7-17); CALCIUM 7.1 mg/dl (8.6-10.4); CARBON DIOXIDE 24 mmol/L (22-30); CHLORIDE 110 mmol/L (98-107); GFR AFRICAN-AMERICAN > 60; GLUCOSE,RANDOM 91 mg/dL (65-105); MAGNESIUM 1.9 mg/dL (1.6-2.3); PHOSPHOROUS 2.7 mg/dL (2.5-4.5); POTASSIUM 3.4 mmol/L (3.6-5.2); SODIUM 142 mmol/L (132-148); TOTAL PROTEIN 5.4 g/dL (6.3-8.3)
[2017-06-03 09:01] VITALS: BP 92/57; PULSE 80; TEMP 98.2; O2SAT 98
[2017-06-03] MEDS: Pantoprazole 40 mg EC Tab PO SCH (09:30)
[2017-06-03] MEDS: Potassium & Sodium Phosphate PO SCH (09:31)
[2017-06-03] MEDS ORDERED: Influenza Vaccine 60 mcg/0.5 mL SYR (4YR UP) IM ONE (10:00)
[2017-06-03] MEDS ORDERED: Pneumococcal 23-Valent Vaccine IM ONE (10:00)
[2017-06-03] MEDS ORDERED: Potassium Chloride 20 mEq ER Tab PO ONE (10:00)
--- NOTE | 2017-06-03 11:21 | CP.PCM.DIS ---
<Summer Camara - Last Filed: 06/03/17 11:17> Provider - Provider Date of Admission: 05/31/17 20:30 Attending physician: Jose Mueller MD Time Spent in preparation of Discharge (in minutes): 55 Hospital Course - Lab Results Lab Results: Micro Results 05/31/17 15:05 Blood Blood Culture - Preliminary NO GROWTH AFTER 48 HOURS 05/31/17 15:15 Blood Blood Culture - Preliminary NO GROWTH AFTER 48 HOURS 05/31/17 21:01 Urine,Clean Catch Urine Culture - Final Escherichia Coli Most Recent Lab Values WBC 3.9 K/uL (4.8-10.8) L 06/03/17 07:10 RBC 3.18 Mil/uL (3.80-5.20) L 06/03/17 07:10 Hgb 9.9 g/dL (11.0-16.0) L 06/03/17 07:10 Hct 28.8 % (34.0-47.0) L 06/03/17 07:10 MCV 90.8 fL (81.0-99.0) 06/03/17 07:10 MCH 31.1 pg (27.0-31.0) H 06/03/17 07:10 MCHC 34.2 g/dL (33.0-37.0) 06/03/17 07:10 RDW 13.4 % (11.5-14.5) 06/03/17 07:10 Plt Count 238 K/uL (130-400) 06/03/17 07:10 MPV 8.2 fL (7.2-11.7) 06/03/17 07:10 Neut % (Auto) 63.0 % (50.0-75.0) 06/03/17 07:10 Lymph % (Auto) 25.6 % (20.0-40.0) 06/03/17 07:10 [place] % (Auto) 10.7 % (0.0-10.0) H 06/03/17 07:10 Eos % (Auto) 0.5 % (0.0-4.0) 06/03/17 07:10 Baso % (Auto) 0.2 % (0.0-2.0) 06/03/17 07:10 Neut # 2.5 K/uL (1.8-7.0) 06/03/17 07:10 Lymph # 1.0 K/uL (1.0-4.3) 06/03/17 07:10 [place] # 0.4 K/uL (0.0-0.8) 06/03/17 07:10 Eos # 0.0 K/uL (0.0-0.7) 06/03/17 07:10 Baso # 0.0 K/uL (0.0-0.2) 06/03/17 07:10 Neutrophils % (Manual) 81 % (50-75) H 05/31/17 15:29 Lymphocytes % (Manual) 6 % (20-40) L 05/31/17 15:29 Monocytes % (Manual) 13 % (0-10) H 05/31/17 15:29 Platelet Estimate Normal (NORMAL) 05/31/17 15:29 RBC Morphology Normal 05/31/17 15:29 pO2 44 mm/Hg (30-55) 05/31/17 19:30 VBG pH 7.35 (7.32-7.43) 05/31/17 19:30 VBG pCO2 37 mmHg (40-60) L 05/31/17 19:30 VBG HCO3 20.7 mmol/L 05/31/17 19:30 VBG Total CO2 21.5 mmol/L (22-28) L 05/31/17 19:30 VBG O2 Sat (Calc) 84.2 % (40-65) H 05/31/17 19:30 VBG Base Excess -4.7 mmol/L (0.0-2.0) L 05/31/17 19:30 VBG Potassium 3.1 mmol/L (3.6-5.2) L 05/31/17 19:30 Sodium 139.0 mmol/l (132-148) 05/31/17 19:30 Chloride 114.0 mmol/L (98-107) H 05/31/17 19:30 Glucose 98 mg/dl (65-105) 05/31/17 19:30 Lactate 0.5 mmol/L (0.7-2.1) L 05/31/17 19:30 Sodium 142 mmol/L (132-148) 06/03/17 07:10 Potassium 3.4 mmol/L (3.6-5.2) L 06/03/17 07:10 Chloride 110 mmol/L (98-107) H 06/03/17 07:10 Carbon Dioxide 24 mmol/L (22-30) 06/03/17 07:10 Anion Gap 12 (10-20) 06/03/17 07:10 BUN 5 mg/dL (7-17) L 06/03/17 07:10 Creatinine 0.5 mg/dL (0.7-1.2) L 06/03/17 07:10 Est GFR ( Amer) > 60 06/03/17 07:10 Est GFR (Non-Af Amer) > 60 06/03/17 07:10 Random Glucose 91 mg/dL (65-105) 06/03/17 07:10 Calcium 7.1 mg/dl (8.6-10.4) L 06/03/17 07:10 Phosphorus 2.7 mg/dL (2.5-4.5) 06/03/17 07:10 Magnesium 1.9 mg/dL (1.6-2.3) 06/03/17 07:10 Total Bilirubin 0.3 mg/dL (0.2-1.3) 06/03/17 07:10 AST 75 U/L (14-36) H D 06/03/17 07:10 ALT 201 U/L (9-52) H D 06/03/17 07:10 Alkaline Phosphatase 106 U/L (38-126) 06/03/17 07:10 Total Protein 5.4 g/dL (6.3-8.3) L 06/03/17 07:10 Albumin 3.0 g/dL (3.5-5.0) L 06/03/17 07:10 Globulin 2.4 gm/dL (2.2-3.9) 06/03/17 07:10 Albumin/Globulin Ratio 1.3 (1.0-2.1) 06/03/17 07:10 Procalcitonin 0.30 NG/ML (0.19-0.49) 06/01/17 07:05 Venous Blood Potassium 3.1 mmol/L (3.6-5.2) L 05/31/17 19:30 Urine Color Straw (YELLOW) 06/01/17 01:43 Urine Clarity Clear (Clear) 06/01/17 01:43 Urine pH 6.0 (5.0-8.0) 06/01/17 01:43 Ur Specific [place] 1.008 (1.003-1.030) 06/01/17 01:43 Urine Protein Negative mg/dL (NEGATIVE) 06/01/17 01:43 Urine Glucose (UA) Normal mg/dL (Normal) 06/01/17 01:43 Urine Ketones 1+ mg/dL (NEGATIVE) H 06/01/17 01:43 Urine Blood 1+ (NEGATIVE) H 06/01/17 01:43 Urine Nitrate Negative (NEGATIVE) 06/01/17 01:43 Urine Bilirubin Negative (NEGATIVE) 06/01/17 01:43 Urine Urobilinogen Normal mg/dL (0.2-1.0) 06/01/17 01:43 Ur Leukocyte Esterase 2+ Bambi/uL (Negative) H 06/01/17 01:43 Urine WBC (Auto) 121 /hpf (0-5) H 06/01/17 01:43 Urine RBC (Auto) 3 /hpf (0-3) 06/01/17 01:43 Ur Squamous Epith Cells 9 /hpf (0-5) H 06/01/17 01:43 Ur Transition Epith Cell < 1 /hpf (0-3) 05/31/17 17:12 Urine Bacteria Rare (<OCC) 06/01/17 01:43 Urine HCG, Qual Negative (NEGATIVE) 05/31/17 17:12 Hepatitis A IgM Ab Negative (NEGATIVE) 06/01/17 07:05 Hep Bs Antigen Negative (NEGATIVE) 06/01/17 07:05 Hep B Core IgM Ab Negative (NEGATIVE) 06/01/17 07:05 Hepatitis C Antibody Negative (NEGATIVE) 06/01/17 07:05 Influenza Typ A,B (EIA) Negative for flu a/b (NEGATIVE) 05/31/17 15:32 Ur L.pneumophila Ag Negative (NEGATIVE) 06/01/17 11:34 Mycoplasma pneumon IgM Negative (NEGATIVE) 06/01/17 11:34 - Hospital Course Hospital Course: Upon Admission: CC: "flu like symptoms" HPI: 42 y/o Luxembourger speaking female with no significant PMH presents to the ED complaining of "cold/flu-like symptoms". Patient says she started having a generalized headache, fever, chills, and body aches 4 days ago. Patient says she has tried Advil, Tylenol, and Motrin with minimal relief. Patient says she has been taking 6 Advil every 8 hours and 2 acetaminophen last night. She says her son was recently sick with similar symptoms. Patient admits to dry cough, midsternal chest pressure, SOB at rest, dizziness upon standing, palpitations, nausea, vomiting x2 yesterday, and constipation. She denies changes in vision or hearing, sore throat, abdominal pain, diarrhea, hematemesis, dysuria, hematuria, pain and swelling in legs, and recent travel. FDLNMP: 05/16/17. PCP: Sulma Douglas PMH: denies Meds: denies PSH: x3 [place]: denies FH: unspecified aneurysm (mother) SH: denies tobacco, alcohol, and drug use Throughout Hospital Course: Patient was admitted for UTI, Hypotension and for Transaminitis. Initial blood cultures were negative, so sepsis/ bacterimia was ruled out. Repeat UC was negative. She was placed on IV abx since admission will be discharged with PO abx. Further workup ruled out flu and pneumonia. GI was consulted due to fluctuating, persistant transaminitis. Initially it was believed to be due to heavy tylenol use, however LFTs remained elevated over time. Gallbladder US was unremarkable. Patient is to follow up with GI as outpatient. Patient is to follow up with PMD to monitor LFTs and with GI. This is a brief summary of the patient's hospital course, please review EMR for full record. Discharge Exam - Head Exam Head Exam: NORMAL INSPECTION, NORMOCEPHALIC - Additional Findings Additional findings: - Constitutional Appears: No Acute Distress - Head Exam Head Exam: NORMAL INSPECTION, NORMOCEPHALIC - Eye Exam Eye Exam: EOMI, Normal appearance, PERRL Pupil Exam: NORMAL ACCOMODATION - ENT Exam ENT Exam: Mucous Membranes Moist, Normal Exam - Neck Exam Neck Exam: Normal Inspection - Respiratory Exam Respiratory Exam: Clear to Ausculation Bilateral, NORMAL BREATHING PATTERN. absent: Decreased Breath Sounds - Cardiovascular Exam Cardiovascular Exam: REGULAR RHYTHM, RRR - GI/Abdominal Exam GI & Abdominal Exam: Soft, Normal Bowel Sounds. absent: Distended, Tenderness - Back Exam Back Exam: absent: CVA tenderness (L), CVA tenderness (R) - Neurological Exam Neurological Exam: Alert, Awake, Oriented x3 - Psychiatric Exam Psychiatric exam: Normal Affect, Normal Mood - Skin Skin Exam: Dry, Intact, Normal Color, Warm Discharge Plan - Discharge Medications Prescriptions: Ciprofloxacin HCl [Cipro] 500 mg PO BID #14 tab - Follow Up Plan Condition: IMPROVED Disposition: HOME/ ROUTINE Instructions: Ciprofloxacin (By mouth), Urinary Tract Infection in Women (DC), Urinary Tract Infection in Men (DC), Dysuria (GEN) Additional Instructions: As per Dr. Couch, patient is safe for discharge. She is to follow up with her PMD within 1 week for routine follow up and to have her liver function monitored. She is to follow up with a Ski [facility] of her preference or with Dr. Gomez. Please continue to take Cipro 500mg by mouth twice a day for 7 days. Please return to the hospital if your symptoms worsen or return. PLEASE AVOID TYLENOL - if you have fever or pain take MOTRIN. ---- Segn el Dr. Couch, el paciente est a nadia para el jose. Kathi debe hacer un seguimiento con oviedo PMD dentro de 1 semana para el seguimiento de rutina y para controlar oviedo funcin heptica. Kathi debe hacer un seguimiento con un gastroenterlogo de oviedo preferencia o con el Dr. Gomez. Contine tomando Cipro 500mg por va oral dos veces al da douglas 7 centeno. Por favor regrese al hospital si michele sntomas empeoran o regresan. POR FAVOR, EVITE EL USO DE TYLENOL. Si tiene fiebre o dolor, tome MOTRIN. Referrals: Arlyn Gomez [Staff Provider] - <Eleanor Couch - Last Filed: 06/03/17 15:34> Provider - Provider Date of Admission: 05/31/17 20:30 Attending physician: Jose Mueller MD Hospital Course - Lab Results Lab Results: Micro Results 05/31/17 15:05 Blood Blood Culture - Preliminary NO GROWTH AFTER 48 HOURS 05/31/17 15:15 Blood Blood Culture - Preliminary NO GROWTH AFTER 48 HOURS 05/31/17 21:01 Urine,Clean Catch Urine Culture - Final Escherichia Coli Most Recent Lab Values WBC 3.9 K/uL (4.8-10.8) L 06/03/17 07:10 RBC 3.18 Mil/uL (3.80-5.20) L 06/03/17 07:10 Hgb 9.9 g/dL (11.0-16.0) L 06/03/17 07:10 Hct 28.8 % (34.0-47.0) L 06/03/17 07:10 MCV 90.8 fL (81.0-99.0) 06/03/17 07:10 MCH 31.1 pg (27.0-31.0) H 06/03/17 07:10 MCHC 34.2 g/dL (33.0-37.0) 06/03/17 07:10 RDW 13.4 % (11.5-14.5) 06/03/17 07:10 Plt Count 238 K/uL (130-400) 06/03/17 07:10 MPV 8.2 fL (7.2-11.7) 06/03/17 07:10 Neut % (Auto) 63.0 % (50.0-75.0) 06/03/17 07:10 Lymph % (Auto) 25.6 % (20.0-40.0) 06/03/17 07:10 [place] % (Auto) 10.7 % (0.0-10.0) H 06/03/17 07:10 Eos % (Auto) 0.5 % (0.0-4.0) 06/03/17 07:10 Baso % (Auto) 0.2 % (0.0-2.0) 06/03/17 07:10 Neut # 2.5 K/uL (1.8-7.0) 06/03/17 07:10 Lymph # 1.0 K/uL (1.0-4.3) 06/03/17 07:10 [place] # 0.4 K/uL (0.0-0.8) 06/03/17 07:10 Eos # 0.0 K/uL (0.0-0.7) 06/03/17 07:10 Baso # 0.0 K/uL (0.0-0.2) 06/03/17 07:10 Neutrophils % (Manual) 81 % (50-75) H 05/31/17 15:29 Lymphocytes % (Manual) 6 % (20-40) L 05/31/17 15:29 Monocytes % (Manual) 13 % (0-10) H 05/31/17 15:29 Platelet Estimate Normal (NORMAL) 05/31/17 15:29 RBC Morphology Normal 05/31/17 15:29 pO2 44 mm/Hg (30-55) 05/31/17 19:30 VBG pH 7.35 (7.32-7.43) 05/31/17 19:30 VBG pCO2 37 mmHg (40-60) L 05/31/17 19:30 VBG HCO3 20.7 mmol/L 05/31/17 19:30 VBG Total CO2 21.5 mmol/L (22-28) L 05/31/17 19:30 VBG O2 Sat (Calc) 84.2 % (40-65) H 05/31/17 19:30 VBG Base Excess -4.7 mmol/L (0.0-2.0) L 05/31/17 19:30 VBG Potassium 3.1 mmol/L (3.6-5.2) L 05/31/17 19:30 Sodium 139.0 mmol/l (132-148) 05/31/17 19:30 Chloride 114.0 mmol/L (98-107) H 05/31/17 19:30 Glucose 98 mg/dl (65-105) 05/31/17 19:30 Lactate 0.5 mmol/L (0.7-2.1) L 05/31/17 19:30 Sodium 142 mmol/L (132-148) 06/03/17 07:10 Potassium 3.4 mmol/L (3.6-5.2) L 06/03/17 07:10 Chloride 110 mmol/L (98-107) H 06/03/17 07:10 Carbon Dioxide 24 mmol/L (22-30) 06/03/17 07:10 Anion Gap 12 (10-20) 06/03/17 07:10 BUN 5 mg/dL (7-17) L 06/03/17 07:10 Creatinine 0.5 mg/dL (0.7-1.2) L 06/03/17 07:10 Est GFR ( Amer) > 60 06/03/17 07:10 Est GFR (Non-Af Amer) > 60 06/03/17 07:10 Random Glucose 91 mg/dL (65-105) 06/03/17 07:10 Calcium 7.1 mg/dl (8.6-10.4) L 06/03/17 07:10 Phosphorus 2.7 mg/dL (2.5-4.5) 06/03/17 07:10 Magnesium 1.9 mg/dL (1.6-2.3) 06/03/17 07:10 Total Bilirubin 0.3 mg/dL (0.2-1.3) 06/03/17 07:10 AST 75 U/L (14-36) H D 06/03/17 07:10 ALT 201 U/L (9-52) H D 06/03/17 07:10 Alkaline Phosphatase 106 U/L (38-126) 06/03/17 07:10 Total Protein 5.4 g/dL (6.3-8.3) L 06/03/17 07:10 Albumin 3.0 g/dL (3.5-5.0) L 06/03/17 07:10 Globulin 2.4 gm/dL (2.2-3.9) 06/03/17 07:10 Albumin/Globulin Ratio 1.3 (1.0-2.1) 06/03/17 07:10 Procalcitonin 0.30 NG/ML (0.19-0.49) 06/01/17 07:05 Venous Blood Potassium 3.1 mmol/L (3.6-5.2) L 05/31/17 19:30 Urine Color Straw (YELLOW) 06/01/17 01:43 Urine Clarity Clear (Clear) 06/01/17 01:43 Urine pH 6.0 (5.0-8.0) 06/01/17 01:43 Ur Specific [place] 1.008 (1.003-1.030) 06/01/17 01:43 Urine Protein Negative mg/dL (NEGATIVE) 06/01/17 01:43 Urine Glucose (UA) Normal mg/dL (Normal) 06/01/17 01:43 Urine Ketones 1+ mg/dL (NEGATIVE) H 06/01/17 01:43 Urine Blood 1+ (NEGATIVE) H 06/01/17 01:43 Urine Nitrate Negative (NEGATIVE) 06/01/17 01:43 Urine Bilirubin Negative (NEGATIVE) 06/01/17 01:43 Urine Urobilinogen Normal mg/dL (0.2-1.0) 06/01/17 01:43 Ur Leukocyte Esterase 2+ Bambi/uL (Negative) H 06/01/17 01:43 Urine WBC (Auto) 121 /hpf (0-5) H 06/01/17 01:43 Urine RBC (Auto) 3 /hpf (0-3) 06/01/17 01:43 Ur Squamous Epith Cells 9 /hpf (0-5) H 06/01/17 01:43 Ur Transition Epith Cell < 1 /hpf (0-3) 05/31/17 17:12 Urine Bacteria Rare (<OCC) 06/01/17 01:43 Urine HCG, Qual Negative (NEGATIVE) 05/31/17 17:12 Hepatitis A IgM Ab Negative (NEGATIVE) 06/01/17 07:05 Hep Bs Antigen Negative (NEGATIVE) 06/01/17 07:05 Hep B Core IgM Ab Negative (NEGATIVE) 06/01/17 07:05 Hepatitis C Antibody Negative (NEGATIVE) 06/01/17 07:05 Influenza Typ A,B (EIA) Negative for flu a/b (NEGATIVE) 05/31/17 15:32 Ur L.pneumophila Ag Negative (NEGATIVE) 06/01/17 11:34 Mycoplasma pneumon IgM Negative (NEGATIVE) 06/01/17 11:34 Attending/Attestation - Attestation I have personally seen and examined this patient.: Yes I have fully participated in the care of the patient.: Yes I have reviewed all pertinent clinical information, including history, physical exam and plan: Yes Notes (Text): seen today,no complain.discharge plan discussed the patient
--- NOTE | 2017-06-03 13:08 | PN ---
LOCATION: [facility], bed B. SUBJECTIVE: This is 42 years old female seen for GI consultation initially on 06/02/2017, reexamined again today with intermittent period of generalized body ache and abdominal discomfort on and off. The entire chart is reviewed including, but not limited to the most recent lab and radiology study results, current and previous medication list, current and previous medical events. The patient had ultrasound of the abdomen, report is seen. LABORATORY DATA: Most recent lab results show hemoglobin of 9.9 with hematocrit of 28.8. No reported active bleeding and the patient is still having mildly elevated AST 75, ALT of 201 with normal total bilirubin and normal alkaline phosphatase, but low albumin and low total protein. Hepatitis profile reported to be negative. PHYSICAL EXAMINATION: GENERAL: A 42 years old female, awake, alert, oriented. VITAL SIGNS: Afebrile with blood pressure of 96/60, heart rate of 82 with respiratory rate of 20 to 22. HEENT: Showed pale, dry oral mucous membrane. Nonicteric sclerae. LUNGS: A few scattered crepitation. Decreased air entry at bases. HEART: Positive S1 and S2. ABDOMEN: Soft. Bowel sounds are present with mild generalized tenderness. No mass or organomegaly. No rebound tenderness or guarding. EXTREMITIES: Without edema, clubbing, or cyanosis. NEUROLOGIC: No reported new neurological deficits, sensory or motor. IMPRESSION: 1. Abnormal liver function test, only AST and ALT of unclear etiology, that could be secondary to drug-induced, chemical hepatitis, mild. 2. Peptic ulcer disease. 3. Anemia of unclear etiology. 4. Recently diagnosed urinary tract infection. SUGGESTIONS: 1. Agree with your plan. 2. Guaiac all the stool daily x3. 3. If the patient's symptoms persists, then endoscopic evaluation of upper and lower GI tract to follow. Arlyn Powell MD cc: Arlyn Powell MD
--- NOTE | 2017-06-04 00:03 | CON ---
DATE: 06/02/2017 From Arlyn Powell MD to Norbert Goodwin DPM. I was called for a GI consultation by the admitting medical team. The patient was seen and examined on 06/02/2017 for GI consultation as requested by the admitting medical staff. The entire chart is reviewed including but not limited to the most recent lab and radiology study results, current and the previous medication list, current and the previous medical records as well as all the available current and the previous medical events. Case discussed with the staff at length. HISTORY OF PRESENT ILLNESS: This is a 42 years old female who was admitted initially with a main complaint of generalized weakness and malaise, severe body ache, chills, intermittent periods of dry cough with headache and low-grade fever for 4 to 6 days prior to her admission with loss of appetite and nausea for which she was taking Advil apparently as outpatient. No chest pain, palpitation or reported significant shortness of breath. PAST MEDICAL HISTORY: Including many peptic ulcer disease. FAMILY HISTORY: Unknown. SOCIAL HISTORY: Denies any known history of cigarette smoking or alcohol intake. ALLERGY TO MEDICATION: UNCLEAR. PHYSICAL EXAMINATION: GENERAL: A 42 years old female. VITAL SIGNS: Afebrile at the time she was seen by me with pulse of 86, respiratory rate 20 to 22, blood pressure 100/62. HEENT: Showed dry oral mucous membrane. Nonicteric sclerae. LUNGS: Few scattered crepitation. Decreased air entry at bases. HEART: Positive S1 and S2. ABDOMEN: Soft. Bowel sounds are present. No mass or organomegaly. NEUROLOGIC: No reported new neurological deficits, sensory or motor. EXTREMITIES: Without significant edema, clubbing or cyanosis. RECTAL: Examination the patient refused. LABORATORY DATA: After being admitted to the hospital, however, initial blood workup showed mildly elevated blood glucose level to 107 with leukocytosis of 14.3 with mildly abnormal liver function tests. No reported active bleeding. IMPRESSION: 1. Abnormal liver function tests. Rule out possible chemical hepatitis, less likely viral hepatitis.. 2. Nonsteroidal antiinflammatory agent intake inducing gastritis, most likely. 3. The patient reported fever with leukocytosis of unclear etiology. SUGGESTION: 1. Agree with your plan. 2. Repeat hepatitis profile. 3. Serum lipase, amylase level. 4. Cancer markers including CEA and CA125. 5. If there is subsequent change or drop in hemoglobin and hematocrit, then our endoscopy to be followed by colonoscopy if it is agreeable with you. 6. Further recommendation to follow. Thank you for letting me participate in your patient's case and management. I will follow up closely with you. Arlyn Powell MD
== END 2017-06-03 14:15 | disposition home or self-care (01) | DRG 321 ==
LOC: C.ER 14:32 → C.9E 20:30 → C.3T 21:57
PROVIDERS: ADMIT Internal Medicine; ATTEND Internal Medicine
DX: N39.0 Urinary tract infection, site not specified (principal); B34.9 Viral infection, unspecified; D64.9 Anemia, unspecified; K27.9 Peptic ulcer, site unspecified, unspecified as acute or chronic, without hemorrhage or perforation; K29.70 Gastritis, unspecified, without bleeding; K59.00 Constipation, unspecified